=== PATIENT | female | born 1930 | race Two or more races ===

== ENCOUNTER 2018-11-02 10:32 | Emergency (ER) | payer MEDICARE, OTHER, MEDICAID ==
[2018-11-02] MEDS: HYDROCODONE/APAP (5/325) TAB PO (12:08)
[2018-11-02] MEDS: ONDANSETRON (ODT) 4 MG TAB ODT (12:08)
[2018-11-02 13:10] LABS: URINE BLOOD (Dip) POC Trace-lysed (NEGATIVE); URINE GLUCOSE (Dip) POC Negative (NEGATIVE); URINE KETONES (Dip) POC Negative (NEGATIVE); URINE LEUKOCYTE EST (Dip) POC Trace (NEGATIVE); URINE NITRITE (Dip) POC Negative (NEGATIVE); URINE TOTAL PROTEIN POC Trace (NEGATIVE)
[2018-11-02 13:10] LABS: URINE PH (Dip) POC 5.5 (5.0-8.5)
== END 2018-11-02 13:59 | disposition home or self-care (01) ==
LOC: E/R 10:32
DX: M54.5 Low back pain (principal); K59.00 Constipation, unspecified
CPT/HCPCS: 81003; 99283